=== PATIENT | female | born 2000 | race Caucasian/White ===

== ENCOUNTER 2021-01-27 10:19 | Emergency (ER) | payer OTHER, SELFPAY ==
--- NOTE | ~2021-01-27 | XR_ITS ---
EXAMINATION: XR cervical spine 4-5V EXAM DATE: 01/27/2021 11:18 INDICATION: Rt sided NECK PAIN x 3 days; no injury. TECHNIQUE: Cervical spine frontal, lateral, lateral swimmers, submental vertex and open-mouth odonto id projections. There is no prior study for comparison. FINDINGS: There is widened prevertebral soft tissue anterior to the C1-2 level, measuring about 11 mm in thickness. On couple of the frontal projections there is lucency through the odontoid base, could be mock band, no lucency is identified on the lateral projection, but given the prevertebral widenin g, recommend confirming that there is truly no history of trauma or possibility of odontoid base frac ture. Other possible consideration for prevertebral widening would be edema/infection. I discussed th todd possibilities with Christine Toscano CNP at 01/27/2021 11:31 CDT. The vertebral bodies are aligned i n the AP dimension. Vertebral body and disc heights are well-maintained. Epiglottis is normal in thic kness. IMPRESSION: 1. Prevertebral widening anterior to C2. Hemorrhage, or edema from infection could cause this. 2. Odontoid base lucency 2 of the on frontal projections, could be mock band but fracture not exclud able. 3. Recommend CT neck with contrast if infection is clinical possibility. If not then consider a CT c ervical spine without contrast. Reviewed, dictated and finalized at location A. IMPRESSION: 1. Prevertebral widening anterior to C2. Hemorrhage, or edema from infection c ould cause this. 2. Odontoid base lucency 2 of the on frontal projections, could be mock band b ut fracture not excludable. 3. Recommend CT neck with contrast if infection is clinical possibility. If no t then consider a CT cervical spine without contrast.
[2021-01-27 10:28] VITALS: BP 148/98; PULSE 100; RESP 22; TEMP 36.7; O2SAT 98
--- NOTE | 2021-01-27 11:09 | ED.NECK ---
HPI - Neck Pain/Injury General Chief Complaint: Neck Pain/Injury Stated Complaint: NECK PAIN Time Seen by Provider: 01/27/21 10:50 Source: patient Mode of arrival: ambulatory Limitations: no limitations History of Present Illness HPI Narrative: Donna Villeda is a 20 yo obese female with no PMH who comes to express care with c/o R sided neck pain and limited ROM after sleeping wrong on it Sunday. Has tried home remedies but has not improved- denied trauma but states that her neck has been quite sore on the right side with radiation to the base of skull She denies having this problem in the past -no fever, no nausea vomiting Related Data Allergies Allergy/AdvReac Type Severity Reaction Status Date / Time Sulfa (Sulfonamide Allergy Diarrhea Verified 01/27/21 10:25 Antibiotics) Review of Systems Review of Systems: Narrative: CONSTITUTIONAL: Denies fever, chills, sweats. EYES: Denies visual changes, redness, discharge. ENT: Denies rhinorrhea, congestion, sore throat, otalgia. CARDIOVASCULAR: Denies chest pain, palpitations, edema. RESPIRATORY: Denies dyspnea, wheezing, cough GASTROINTESTINAL: Denies abdominal pain, nausea, vomiting, diarrhea. GENITOURINARY: Denies dysuria, hematuria, abnormal discharge SKIN: Denies rash or itching. NEUROLOGIC: Denies numbness, or focal weakness. PSYCHIATRIC: Denies anxiety or depression. Right-sided neck pain with restriction and range of motion due to pain PMFSH Past Medical History Medical History No acute medical problems Family History Family History Father Diabetes mellitus Other Heart disease Hypertension Social History Social History (Updated 01/27/21 @ 11:13 by Christine Toscano CNP) Smoking status: Never smoker Alcohol intake: never Comments At time of signature, I agree with nursing past medical, surgical, social and family history. There is no relevant family history pertinent to the presenting complaint. Patient's blood pressure is elevated at this visit probably due to level of pain medication referred back to PCP this week Exam Narrative: Exam Narrative: GENERAL: This is a well-nourished, well-developed patient, in mild distress. HEAD: normocephalic, atraumatic. EYES:. Sclera clear/white. Vision is grossly intact. EARS: External ears normal,. Hearing grossly intact. NOSE: External nose normal without nasal discharge, nares without redness, no rhinorrhea. THROAT: Mucous membranes moist, x NECK: Neck supple, tender on right side pain with looking up or looking to the left; does not radiate into upper shoulder or arm CARDIOVASCULAR: Regular rate and rhythm without murmurs, gallops, or rubs. RESPIRATORY: Clear to auscultation. Breath sounds equal bilaterally. No wheezes, rales, or rhonchi. GASTROINTESTINAL: Abdomen soft, pannus SKIN: warm, intact with no suspicious lesions or rash, good texture and turgor. NEURO: awake, alert, and oriented to person, place and time. There were no obvious focal neurologic abnormalities. Steady gait EXTREMITIES: Normal range of motion. BACK: Nontender without deformity; right neck is tender to palpation and states that it radiates into her base of right skull, she has full ability to shrug shoulders and move her arms overhead forward and backwards; denies sensational change, strength is equal in all extremities Course Course Emergency Course: Patient comes to [facility] complaining of right-sided neck pain since Sunday X-ray of cervical spine done-radiologist called from hospital due to abnormalities on the x-ray that could be anatomical or artifact could indicate possible trauma at the odontoid are infection because of widening prevertebral space After discussion patient to be sent to [facility] for CT of the neck or cervical spine Called [facility] for transfer of patient Started on baclofen and ibuprofen- Vital Signs
== END 2021-01-27 11:55 | disposition short-term general hospital (02) ==
PROVIDERS: Emergency Provider Nurse Practitioner
DX: M54.2 Cervicalgia (principal)
CPT/HCPCS: 72050; 99213; G0463

== ENCOUNTER 2021-01-27 12:24 | Emergency (ER) | payer OTHER, SELFPAY ==
--- NOTE | ~2021-01-27 | CT_ITS ---
EXAMINATION: CT cervical spine wo con EXAM DATE: 01/27/2021 13:07 INDICATION: Right-sided neck pain for 3 days. No known injury. X-ray demonstrating prevertebral widen ing and mock band versus odontoid base fracture. TECHNIQUE: Spiral CT of the cervical spine was performed without contrast. Axial images were reviewe d. Coronal and sagittal reformatted images were also reviewed. The dose-length product (DLP) for thi s examination was 583.67 mGy-cm. The exposure was tailored according to patient size (auto mA exposu re control), and iterative reconstruction (ASIR) was used as additional dose reduction technique. Cor relation is made to cervical x-ray earlier same date. FINDINGS: There is moderate reversal of the normal cervical lordosis which may be positional or spasm . There is no evidence of acute cervical fracture. The odontoid process is intact. Mildly wide appearing prevertebral soft tissue but without any evidence of abscess, fat stranding or hematoma. Pre-dens space is normal. There are no soft tissue abnormalities identified. There is no disc space widening or traumatic vertebral body subluxation suspected. Vertebral body and disc heigh ts are well-maintained. The facet joints and uncovertebral joints are unremarkable. No stenosis. IMPRESSION: 1. Moderate reversal of normal cervical lordosis could indicate muscle spasm. 2. No acute findings. Reviewed, dictated and finalized at location A.
[2021-01-27 12:43] VITALS: BP 142/117; PULSE 115; RESP 22; TEMP 36.7; O2SAT 98
[2021-01-27 14:02] LABS: Basophils Absolute Auto 0.1 K/mm3 (0.0-0.1); Basophils Percent Auto 0.5 % (0.2-1.2); Eosinophils Absolute Auto 0.1 K/mm3 (0-0.3); Eosinophils Percent Auto 0.7 % (0-4.4); Hematocrit 42.4 % (37.0-47.0); Hemoglobin 13.9 g/dL (12.0-15.0); Immature Granulocyte Absolute 0.03 K/mm3 (0.00-0.031); Immature Granulocyte Percent A 0.3 % (0-0.5); Lymphocytes Absolute Auto 1.58 K/mm3 (0.9-3.2); Lymphocytes Percent Auto 14.5 % (18.3-44.2); Mean Corpuscular HGB Conc 32.8 g/dl (32-36); Mean Corpuscular Hemoglobin 28.1 pg (26-34); Mean Corpuscular Volume 85.7 fl (80-100); Mean Platelet Volume 8.9 fl (7.4-10.4); Monocytes Absolute Auto 0.8 K/mm3 (0.1-0.6); Monocytes Percent Auto 6.9 % (2.6-8.5); Neutrophils Absolute Auto 8.4 K/mm3 (1.3-6.7); Neutrophils Percent Auto 77.1 % (45.5-73.1); Platelet Count Result 390 k/mm3 (150-375); Red Blood Count 4.95 M/mm3 (4.2-5.4); Red Cell Distribution Width 14.5 % (11.5-14.5); White Blood Count 10.9 K/mm3 (4.5-10.0)
[2021-01-27] MEDS: diazePAM (*CRX) 5 MG TABLET PO (14:25)
[2021-01-27] MEDS: KETOROLAC (*BKC) 60 MG/2 ML VIAL IM (14:25)
--- NOTE | 2021-01-27 14:25 | ED.GENADULT ---
HPI - General Adult General Chief complaint: Neck Pain/Injury Stated complaint: Express Care Request CT Scan Time Seen by Provider: 01/27/21 12:39 Source: patient and family Mode of arrival: ambulatory Limitations: no limitations History of Present Illness HPI narrative: Patient is a 20-year-old female who presents to emergency department for evaluation of right-sided neck pain she woke with the pain on Sunday has been taking ibuprofen with minimal improvement went to urgent care today for evaluation had x-ray performed and was referred to emergency department for a CAT scan to rule out fracture or other etiology given the limited evaluation on the x-ray. Patient on arrival notes moderate pain no other abnormalities denies any recent illness. Related Data Allergies Allergy/AdvReac Type Severity Reaction Status Date / Time Sulfa (Sulfonamide Allergy Diarrhea Verified 01/27/21 10:25 Antibiotics) Review of Systems Review of Systems: All systems reviewed & are unremarkable except as noted in HPI and below PMFSH Past Medical History Medical History No acute medical problems Family History Family History Father Diabetes mellitus Other Heart disease Hypertension Social History Social History Smoking status: Never smoker Alcohol intake: never Gender identity (if verbalized by the patient): Female Exam Narrative: Exam Narrative: GENERAL: Well-appearing, obese, and in no acute distress. HEAD: Normocephalic, atraumatic. EYES: PERRLA and EOMI. ENT: Nares clear, no rhinorrhea or epistaxis. Mucous membranes moist. NECK: Supple. No adenopathy or masses. No carotid bruits or JVD CHEST: Clear to auscultation. No respiratory distress. No wheezes rales or rhonchi HEART: Regular rate and rhythm. No murmur heard. EXTREMITIES: Normal range of motion. No edema. Tenderness of the right paraspinal cervical musculature remainder of spine nontender no deformities SKIN: Warm, dry, no rash. NEURO: No focal deficits. Alert and oriented x3. Cranial nerves II through XII grossly intact normal speech and gait. PSYCH: Normal mood and affect. Course Course Emergency Course: Patient evaluated in the room in no distress aware of case findings treatment plan the diagnosis felt appropriate for outpatient reevaluation Vital Signs Vital signs: Vital Signs Temperature 98.1 F 01/27/21 12:43 Pulse Rate 115 H 01/27/21 12:43 Respiratory Rate 22 H 01/27/21 12:43 Blood Pressure 142/117 H 01/27/21 12:43 Pulse Oximetry 98 01/27/21 12:43 Temperature 98.1 F 01/27/21 12:43 Pulse Rate 115 H 01/27/21 12:43 Respiratory Rate 22 H 01/27/21 12:43 Blood Pressure 142/117 H 01/27/21 12:43 Pulse Oximetry 98 01/27/21 12:43 Medical Decision Making MDM Narrative Medical decision making narrative: Patients injury or pain is consistent with musculoskeletal etiology. No signs of neurological or vascular compromise on exam. Compartments and tisues are soft without signs of compartment syndrome. Pain is felt appropriate for further evaluation on an outpatient basis. No concerning findings on CT Vital Signs Vital Signs: Vital Signs Temperature 98.1 F 01/27/21 12:43 Pulse Rate 115 H 01/27/21 12:43 Respiratory Rate 22 H 01/27/21 12:43 Blood Pressure 142/117 H 01/27/21 12:43 Pulse Oximetry 98 01/27/21 12:43 Temperature 98.1 F 01/27/21 12:43 Pulse Rate 115 H 01/27/21 12:43 Respiratory Rate 22 H 01/27/21 12:43 Blood Pressure 142/117 H 01/27/21 12:43 Pulse Oximetry 98 01/27/21 12:43 Lab Data Result diagrams: 01/27/21 13:55 Labs: Lab Results 01/27/21 Range/Units 13:55 WBC 10.9 H (4.5-10.0) K/mm3 RBC 4.95 (4.2-5.4) M/mm3 Hgb 13.9 (12.0-15.0) g/dL Hct 42.4 (37.0-47.0) % MCV 85.7 (80-1
[2021-01-27 14:43] VITALS: BP 158/99; PULSE 107; RESP 18; O2SAT 98
== END 2021-01-27 14:50 | disposition home or self-care (01) ==
PROVIDERS: Emergency Medicine Emergency Medical Services; Emergency Provider Emergency Medicine
DX: M43.6 Torticollis (principal)
CPT/HCPCS: 36415; 72050; 72125; 85025; 96372; 99284; A9270; J1885

== ENCOUNTER 2023-04-29 19:41 | Emergency (ER) | payer OTHER, SELFPAY ==
--- NOTE | ~2023-04-29 | XR_ITS ---
EXAMINATION: XR lumbar spine 2-3V DATE: 04/29/2023 20:47 INDICATION: Low back pain radiating to the right leg after lifting TECHNIQUE: Anteroposterior and lateral views of the lumbar spine, and cone-down lateral view of the l umbosacral junction were obtained. COMPARISON: None. FINDINGS: Alignment is normal. Vertebral body and disc heights are normal. Sacral arches and bilateral sacroili ac joints are normal. IMPRESSION: 1. Negative lumbar spine radiographs. Reviewed, dictated and finalized at location A.
[2023-04-29 19:42] VITALS: BP 153/101; PULSE 107; RESP 14; TEMP 36.6; O2SAT 100
[2023-04-29 19:58] VITALS: BP 154/97; PULSE 97; RESP 18; TEMP 37.3; O2SAT 97
[2023-04-29 20:03] VITALS: BP 154/97; PULSE 97; RESP 18; TEMP 37.3; O2SAT 100
--- NOTE | 2023-04-29 20:15 | ED.BACK ---
HPI - Back Pain/Injury General Chief Complaint: Back Pain/Injury Stated Complaint: back pain Time Seen by Provider: 04/29/23 19:52 Source: patient Mode of arrival: ambulatory Limitations: no limitations History of Present Illness HPI Narrative: This is a 22 year old female that presents to the ER for low back pain. Ongoing over the last couple of days. Reports she was lifting something heavy when she felt a spasm in her lower back. Reports the pain radiated down her right leg. The pain is sharp in nature. It has been ongoing since. She has been taking Tylenol and anti-inflammatories and icing with little relief. Denies fever, saddle anesthesia, or bowel/bladder incontinence. Related Data Allergies Allergy/AdvReac Type Severity Reaction Status Date / Time Sulfa (Sulfonamide Allergy Diarrhea Verified 04/29/23 19:46 Antibiotics) [facility] Past Medical History Medical History No acute medical problems Family History Family History Father Diabetes mellitus Other Heart disease Hypertension Social History Social History Smoking status: Never smoker Alcohol intake: never Gender identity (if verbalized by the patient): Female Exam Narrative: GENERAL: Well-appearing, well-nourished, and in no acute distress. HEAD: Normocephalic, atraumatic. EYES: EOMI. CHEST: Clear to auscultation. No respiratory distress. No wheezes rales or rhonchi HEART: Regular rate and rhythm. No murmur heard. Normal peripheral pulses. EXTREMITIES: Normal range of motion. No edema. Strength equal in bilateral lower extremities (5/5). Normal DP pulses. Normal sensation SKIN: Warm, dry, no rash. NEURO: No focal deficits. Alert and oriented x3. PSYCH: Normal mood and affect Course Course Emergency Course: Patient and family updated on work-up and agree with plan of care Vital Signs Vital signs: Vital Signs Temperature 97.9 F 04/29/23 19:42 Pulse Rate 107 H 04/29/23 19:42 Respiratory Rate 14 04/29/23 19:42 Blood Pressure 153/101 H 04/29/23 19:42 Pulse Oximetry 100 04/29/23 19:42 Oxygen Delivery Room Air 04/29/23 19:42 Temperature 99.2 F 04/29/23 20:03 Pulse Rate 97 04/29/23 20:03 Respiratory Rate 18 04/29/23 20:03 Blood Pressure 154/97 H 04/29/23 20:03 Pulse Oximetry 100 04/29/23 20:03 Oxygen Delivery Room Air 04/29/23 19:58 MDM - Back Pain/Injury MDM Narrative Medical decision making narrative: Patient presents to the emergency department for low back pain after a lifting injury. Tachycardic upon arrival, this normalized with treatment of her pain. She is neurologically intact. Lumbar spine x-ray without acute findings. Patient and family updated on work-up. She reports improvement with Tylenol and Toradol. Instructed to continue to rest, ice and take [id number] pain medication as needed. Will be prescribed muscle relaxer as needed for pain. She is to follow-up with primary care provider. She was given warnings to return to the ER Differential Diagnosis Differential diagnosis: Likely lumbar radiculopathy, sciatica and strain of lumbar region Lab Data Attestation: I reviewed the patient's lab results. Labs: UCG Bedside Result Negative Reference Range: Negative Imaging Data Radiologist's impression: ITS Impressions Lumbar Spine X-Ray 04/29/23 20:52 IMPRESSION: 1. Negative lumbar spine radiographs. Critical Care Time Critical Care Time Critical Care Time: No Discharge Plan Discharge Clinical Impression: Strain of lumbar region Qualifiers: Encounter type: initial encounter Qualified Code(s): S39.012A - Strain of muscle, fascia and tendon of lower back, initial encounter Patient Disposition: Home, Se
[2023-04-29] MEDS: ACETAMINOPHEN 500 MG TABLET 1000 MG PO (20:24)
[2023-04-29] MEDS: KETOROLAC 30 MG/ML VIAL (*BKC) IM (20:24)
--- NOTE | 2023-04-29 20:31 | PC.NURSE ---
urine preg test was negative
[2023-04-29 21:41] VITALS: BP 136/74; PULSE 74; RESP 16; TEMP 37; O2SAT 99
== END 2023-04-29 21:43 | disposition home or self-care (01) ==
PROVIDERS: Emergency Provider Physician Assistant
DX: S39.012A Strain of muscle, fascia and tendon of lower back, initial encounter (principal); X50.0XXA Overexertion from strenuous movement or load, initial encounter
CPT/HCPCS: 72100; 81025; 96372; 99283; A9270; J1885